=== PATIENT | male | born 1950 ===

== ENCOUNTER 2024-02-21 10:36 | Outpatient (RCR) | payer MEDICARE, OTHER, SELFPAY | END 2024-02-21 23:59 | disposition home or self-care (01) | LOC: RST 10:36 | PROVIDERS: ATTENDING PHYSICIAN Specialist; FAMILY PHYSICIAN Family Medicine | DX: G31.84 Mild cognitive impairment of uncertain or unknown etiology (principal); R41.841 Cognitive communication deficit | CPT/HCPCS: 96125 ==

== ENCOUNTER 2024-03-21 09:14 | Outpatient (RCR) | payer MEDICARE, OTHER, SELFPAY | END 2024-03-21 23:59 | disposition home or self-care (01) | LOC: RST 09:14 | PROVIDERS: ATTENDING PHYSICIAN Specialist; FAMILY PHYSICIAN Family Medicine | DX: R41.841 Cognitive communication deficit (principal) | CPT/HCPCS: 97129; 97130 ==

== ENCOUNTER 2024-04-16 10:04 | Outpatient (RCR) | payer MEDICARE, OTHER, SELFPAY | END 2024-04-16 23:59 | disposition home or self-care (01) | LOC: RST 10:04 | PROVIDERS: ATTENDING PHYSICIAN Specialist; FAMILY PHYSICIAN Family Medicine | DX: R41.841 Cognitive communication deficit (principal) | CPT/HCPCS: 97129; 97130 ==

== ENCOUNTER 2024-05-09 10:17 | Outpatient (RCR) | payer MEDICARE, OTHER, SELFPAY | END 2024-05-09 23:59 | disposition home or self-care (01) | LOC: RST 10:17 | PROVIDERS: ATTENDING PHYSICIAN Specialist; FAMILY PHYSICIAN Family Medicine | DX: G31.84 Mild cognitive impairment of uncertain or unknown etiology (principal); R41.841 Cognitive communication deficit | CPT/HCPCS: 97129; 97130 ==

== ENCOUNTER 2024-07-11 06:49 | Outpatient (RCR) | payer MEDICARE, OTHER, SELFPAY | END 2024-07-11 23:59 | disposition home or self-care (01) | LOC: RST 06:49 | PROVIDERS: ATTENDING PHYSICIAN Specialist; FAMILY PHYSICIAN Family Medicine | DX: R41.841 Cognitive communication deficit (principal) | CPT/HCPCS: 97129; 97130 ==

== ENCOUNTER 2024-08-23 10:57 | Outpatient (RCR) | payer MEDICARE, OTHER, SELFPAY | END 2024-08-23 23:59 | disposition home or self-care (01) | LOC: RST 10:57 | PROVIDERS: ATTENDING PHYSICIAN Specialist; FAMILY PHYSICIAN Family Medicine | DX: G31.84 Mild cognitive impairment of uncertain or unknown etiology (principal) | CPT/HCPCS: 97129; 97130 ==

== ENCOUNTER 2024-09-05 09:22 | Outpatient (RCR) | payer MEDICARE, OTHER, SELFPAY | END 2024-09-05 23:59 | disposition home or self-care (01) | LOC: RST 09:22 | PROVIDERS: ATTENDING PHYSICIAN Specialist; FAMILY PHYSICIAN Family Medicine | DX: G31.84 Mild cognitive impairment of uncertain or unknown etiology (principal); R41.841 Cognitive communication deficit; R20.0 Anesthesia of skin; R20.2 Paresthesia of skin | CPT/HCPCS: 97129; 97130 ==